=== PATIENT | male | born 1955 | race Caucasian/White ===

== ENCOUNTER 2016-11-07 10:10 | Emergency (ER) | payer MEDICARE, BC ==
[~2016-11-07] VITALS: Ht 167.6 cm; Wt 75.0 kg
[~2016-11-07 10:10] MED LIST: CARV6.252 PO; CHOL1CHW5 CHEW; CYAN1KIT3 IM; CYCL1TAB29 PO; DULO1CAP3 PO; LIAL1.2T PO; LISI10TA3 PO; LOMO2.5T PO; MULT1TAB46; OCUVTAB PO; POTA4.25 PO; TRAM50TA PO; WELC625T2 PO; ZOFR4TAB3 SL
[2016-11-07 10:13] VITALS: BP 138/86; PULSE 85; RESP 16; TEMP 97.9; O2SAT 98
[2016-11-07] MEDS ORDERED: ERYTOIN10 EACH EYE (10:35)
[2016-11-07] MEDS ORDERED: BUDE3CAP PO ×2 (10:35→12:10)
[2016-11-07] MEDS ORDERED: CYAN1000P IM (10:35)
[2016-11-07] MEDS ORDERED: SACU1TAB PO (10:35)
[2016-11-07] MEDS ORDERED: ERGO2000 PO (10:35)
[2016-11-07] MEDS ORDERED: SODIUM CHLORIDE 0.9% FLUSH 10 ML FLUSH IV FLUSH PRN (10:45)
[2016-11-07 11:12] LABS: AUTOMATED NEUTROPHIL # 2.4 TH/MM3 (1.8-7.7); BASOPHIL % 0.7 % (0.0-2.0); EOSINOPHIL # 0.1 TH/MM3 (0-0.4); EOSINOPHIL % 1.8 % (0.0-4.0); LYMPH % 15.8 % (9.0-44.0); LYMPHOCYTE # 0.7 TH/MM3 (1.0-4.8); MEAN CELL VOLUME 94.1 FL (80.0-100.0); MEAN CORPUSCULAR HEMOGLOBIN 30.6 PG (27.0-34.0); MEAN CORPUSCULAR HGB CONC 32.5 % (32.0-36.0); NEUT % 59.7 % (16.0-70.0); PLATELET COUNT 305 TH/MM3 (150-450); RED BLOOD COUNT 3.82 MIL/MM3 (4.50-5.90); RED CELL DISTRIBUTION WIDTH 12.9 % (11.6-17.2); WHITE BLOOD COUNT 4.1 TH/MM3 (4.0-11.0)
[2016-11-07 11:17] LABS: HEMO FLAGS AUTO DIFF
[2016-11-07 11:21] LABS: POTASSIUM 3.4 MEQ/L (3.5-5.1)
[2016-11-07 11:24] LABS: BICARBONATE 27.6 MEQ/L (21.0-32.0)
[2016-11-07 11:45] LABS: EOSINOPHILS 1 % (0-4); NEUTROPHIL # MANUAL DIFF 2.8 TH/MM3 (1.8-7.7); POLYS (SEG NEUTROPHILS) 69 % (16-70); SCAN/DIFF FINAL DIFF MANUAL; WBC DIFF SAMPLE 100
[2016-11-07 11:47] VITALS: O2SAT 98
--- NOTE | 2016-11-07 11:51 | PD ---
HPI Chief Complaint: Abdominal Pain Time Seen by Provider: 10:25 Travel History International Travel<30 days: No Contact w/Intl Traveler<30days: No Traveled to known affect area: No History of Present Illness HPI 61-year-old male arrives to the ER complaining of labile blood pressure for about 2 weeks or so. The lowest blood pressure was 91/52 and the highest was 160/105. He reports feeling diaphoretic at times chills at times. Nausea and bloating comes and goes. His appetite has been decreased. He reports compliance with budesonide for the past 2 years however was discontinued over a three-week taper. Symptoms have progressively worsened. He describes typically feeling fine and then describing a sudden onset of weakness and fatigue. The describes pallor with diaphoresis during these episodes which may for example occur while the patient is walking in a supermarket or while in a restaurant. Antihypertensives include carvedilol. The patient also takes tramadol and Flexeril. PFSH Past Medical History Hx Anticoagulant Therapy: No Cancer: Yes (leukemia-last chemo 2015) Cardiovascular Problems: Yes (STATES LOW EJECTION FRACTION) Chemotherapy: Yes (07/01) Diabetes: No Hypertension: Yes Social History Alcohol Use: No Tobacco Use: No Allergies-Medications (Allergen,Severity, Reaction): Coded Allergies: No Known Allergies (Unverified , 11/07/16) Reported Meds & Prescriptions Reported Meds & Active Scripts Active Budesonide DR (Budesonide) 3 Mg Capdr 3 Mg PO DAILY 10 Days Zofran Odt (Ondansetron Odt) 4 Mg Tab 4 Mg SL Q6HR PRN Reported Entresto (Sacubitril-Valsartan) 24-26 Mg Tab Tab PO DAILY Vitamin D2 (Ergocalciferol) 2,000 Unit Tab 2,000 Units PO DAILY Erythromycin Opth Oint 5 Mg/Gm Oint 1 Applic EACH EYE DAILY Cyanocobalamin Inj (Cyanocobalamin) 1,000 Mcg/Ml Inj 1,000 Mcg IM Q30D Ocuvite (Multiple Vitamins W/ Minerals) 1 Tab 1 Tab PO DAILY Welchol (Colesevelam HCl) 625 Mg Tab 1,250 Mg PO BID Lomotil (Diphenoxylate-Atropine) 2.5-0.025 Mg Tab 1 Tab PO Q6H PRN Flexeril (Cyclobenzaprine HCl) 10 Mg Tab 10 Mg PO TID PRN Tramadol (Tramadol HCl) 50 Mg Tab 50 Mg PO Q6H PRN Carvedilol 6.25 Mg Tab 12.5 Mg PO BID Lialda (Mesalamine) 1.2 Gm Tabdr 1,600 Mg PO DAILY Take with a meal. Duloxetine DR (Duloxetine HCl) 60 Mg Capdr 60 Mg PO DAILY Potassium Citrate ER 15 Meq Tab 10 Meq PO TID Multi Vitamin Daily (Multiple Vitamin) 1 Tab Tab Review of Systems Except as stated in HPI: all other systems reviewed are Neg General / Constitutional: No: Fever Physical Exam Narrative GENERAL: 61-year-old male well-nourished developed pleasant SKIN: Focused skin assessment warm/dry. HEAD: Atraumatic. Normocephalic. EYES: Pupils equal and round. No scleral icterus. No injection or drainage. ENT: No nasal bleeding or discharge. Mucous membranes pink and moist. NECK: Trachea midline. No JVD. CARDIOVASCULAR: Regular rate and rhythm. No murmur appreciated. RESPIRATORY: No accessory muscle use. Clear to auscultation. Breath sounds equal bilaterally. GASTROINTESTINAL: Abdomen soft, non-tender, nondistended. Hepatic and splenic margins not palpable. MUSCULOSKELETAL: No obvious deformities. No clubbing. No cyanosis. No edema. NEUROLOGICAL: Awake and alert. No obvious cranial nerve deficits. Motor grossly within normal limits. Normal speech. PSYCHIATRIC: Appropriate mood and affect; insight and judgment normal. Data Data Last Documented VS Vital Signs Date Time Temp Pulse Resp B/P Pulse Ox O2 Delivery O2 Flow Rate FiO2 11/07/16 12:30 78 18 154/78 98 11/07/16 11:47 Room Air 11/07/16 10:13 97.9 Vital signs reviewed Orders Basic Metabolic Panel (Bmp) (11/07/16 10:38) Complete Blood Count With Diff (11/07/16 10:38) Iv Access Insert/Monitor (11/07/16 10:38) Ecg Monitoring (11/07/16 10:38) Oximetry (11/07/16 10:38) Sodium Chloride 0.9% Flush (Ns Flush) (11/07/16 10:45) Labs Laboratory Tests Test 11/07/16 11:05 White Blood Count 4.1 TH/MM3 Red Blood Count 3.82 MIL/MM3 Hemoglobin 11.7 GM/DL Hematocrit 36.0 % Mean Corpuscular Volume 94.1 FL Mean Corpuscular Hemoglobin 30.6 PG Mean Corpuscular Hemoglobin 32.5 % Concent Red Cell Distribution Width 12.9 % Platelet Count 305 TH/MM3 Mean Platelet Volume 7.2 FL Neutrophils (%) (Auto) 59.7 % Lymphocytes (%) (Auto) 15.8 % Monocytes (%) (Auto) 22.0 % Eosinophils (%) (Auto) 1.8 % Basophils (%) (Auto) 0.7 % Neutrophils # (Auto) 2.4 TH/MM3 Lymphocytes # (Auto) 0.7 TH/MM3 Monocytes # (Auto) 0.9 TH/MM3 Eosinophils # (Auto) 0.1 TH/MM3 Basophils # (Auto) 0.0 TH/MM3 CBC Comment AUTO DIFF Differential Total Cells 100 Counted Neutrophils % (Manual) 69 % Lymphocytes % 22 % Monocytes % 8 % Eosinophils % 1 % Neutrophils # (Manual) 2.8 TH/MM3 Differential Comment FINAL DIFF MANUAL Sodium Level 146 MEQ/L Potassium Level 3.4 MEQ/L Chloride Level 110 MEQ/L Carbon Dioxide Level 27.6 MEQ/L Anion Gap 8 MEQ/L Blood Urea Nitrogen 9 MG/DL Creatinine 0.86 MG/DL Estimat Glomerular Filtration 91 ML/MIN Rate Random Glucose 92 MG/DL Calcium Level 9.1 MG/DL [facility] Medical Decision Making Medical Screen Exam Complete: Yes Emergency Medical Condition: Yes Differential Diagnosis NSTEMI, unstable angina, coronary vasospasm, PE, PTX, aortic dissection, pericarditis, myocarditis, endocarditis, PNA, esophageal disease, aneurysm, musculoskeletal etiologies, anxiety, cocaine/sympathomimetic abuse Narrative Course CBC & BMP Diagram 11/07/16 11:05 The presentation could be consistent with steroid withdrawal symptoms. He has no petechia. His belly is soft. No evidence of significant electrolyte abnormality and vital signs are normal here. At this point we can initiate budesonide 3 mg daily for one week with a plan for interval evaluation by Dr Samuel, who has been tapering his steroid regimen. Diagnosis Primary Impression: Labile blood pressure Additional Impressions: Pallor Diaphoresis Bloating Referrals: Gordo Almonte MD 2 days Additional Instructions: You have a choice when it comes to health care, and we are glad that you chose [facility]. Hopefully, we have met your expectations on today's visit. You are welcome to return to [facility] at any time, as we are committed to meeting the health care needs of our community. Med/Other Pt SpecificInfo: Prescription(s) given Scripts Budesonide DR 3 Mg Capdr3 Mg PO DAILY 10 Days Ref 0 Prov:Erick Suarez MD 11/07/16 Disposition: 01 DISCHARGE HOME Condition: Stable Erick Suarez MD Nov 07, 2016 11:51
[2016-11-07 12:30] VITALS: BP 154/78
== END 2016-11-07 12:33 | disposition home or self-care (01) ==
LOC: PHED 10:10
DX: R09.89 Other specified symptoms and signs involving the circulatory and respiratory systems (principal); R23.1 Pallor; R61 Generalized hyperhidrosis; R14.0 Abdominal distension (gaseous); I10 Essential (primary) hypertension; Z85.6 Personal history of leukemia
CPT/HCPCS: 80048; 85007; 85027; 99283

== ENCOUNTER 2016-12-07 10:55 | Inpatient (IN) | payer BC ==
[2016-12-07] VITALS (12 sets, daily range): BP systolic 87–151; BP diastolic 44–81; PULSE 84–106; RESP 16–18; TEMP 98.6–102.2; O2SAT 92–98
[~2016-12-07] VITALS: Ht 167.6 cm; Wt 77.9 kg
[~2016-12-07 10:55] MED LIST changes: +BUDE3CAP PO; -CHOL1CHW5 CHEW; +CYAN1000P IM; -CYAN1KIT3 IM; +ERGO2000 PO; +ERYTOIN10 EACH EYE; -LISI10TA3 PO; +SACU1TAB PO
[2016-12-07] MEDS ORDERED: SODIUM CHLOR 0.9% 1000 ML INJ 1,000 ML IV ONE ×2 (11:45→13:00)
[2016-12-07] MEDS ORDERED: ACETAMINOPHEN 325 MG TAB PO ONE (11:45)
[2016-12-07] MEDS ORDERED: SODIUM CHLORIDE 0.9% FLUSH 10 ML FLUSH IVF PRN (11:45)
[2016-12-07 12:06] LABS: AUTOMATED NEUTROPHIL # 6.5 TH/MM3 (1.8-7.7); BASOPHIL # 0.2 TH/MM3 (0-0.2); BASOPHIL % 1.9 % (0.0-2.0); EOSINOPHIL % 0.2 % (0.0-4.0); HEMATOCRIT 31.9 % (39.0-51.0); HEMO FLAGS DIFF FINAL; LYMPH % 6.9 % (9.0-44.0); LYMPHOCYTE # 0.6 TH/MM3 (1.0-4.8); MEAN CELL VOLUME 91.6 FL (80.0-100.0); MEAN CORPUSCULAR HEMOGLOBIN 30.8 PG (27.0-34.0); MEAN CORPUSCULAR HGB CONC 33.6 % (32.0-36.0); MONO % 11.7 % (0.0-8.0); NEUT % 79.3 % (16.0-70.0); PLATELET COUNT 242 TH/MM3 (150-450); RED BLOOD COUNT 3.49 MIL/MM3 (4.50-5.90); RED CELL DISTRIBUTION WIDTH 12.9 % (11.6-17.2); WHITE BLOOD COUNT 8.3 TH/MM3 (4.0-11.0)
[2016-12-07 12:15] LABS: CHLORIDE 110 MEQ/L (98-107); POTASSIUM 3.4 MEQ/L (3.5-5.1); SODIUM (NA) 144 MEQ/L (136-145)
[2016-12-07 12:19] LABS: ANION GAP 7 MEQ/L (5-15); BICARBONATE 26.9 MEQ/L (21.0-32.0); BLOOD UREA NITROGEN 12 MG/DL (7-18)
[2016-12-07 12:22] LABS: ALT (GPT) 29 U/L (12-78); AST (GOT) 21 U/L (15-37); GLOMERULAR FILTRATION RATE 62 ML/MIN (>89)
[2016-12-07 12:23] LABS: TOTAL BILIRUBIN ADULT 1.2 MG/DL (0.2-1.0)
[2016-12-07 12:25] LABS: ALKALINE PHOSPHATASE 84 U/L (45-117)
[2016-12-07] MEDS ORDERED: cefTRIAXone INJ 1,000 MG in SODIUM CHLORIDE 0.9% INJ 100 ML IV ONE (13:00)
[2016-12-07] MEDS ORDERED: AZITHROMYCIN INJ 500 MG in SODIUM CHLOR 0.9% 250 ML INJ 250 ML IV ONE (13:00)
--- NOTE | 2016-12-07 13:17 | RADRPT ---
EXAM DATE/TIME: 12/07/2016 12:02 [place] COMPARISON: No previous studies available for comparison. INDICATIONS : Cough, short of breath, and dizziness for 3 days. MEDICAL HISTORY : Leukemia. Low ejection fraction. SURGICAL HISTORY : None. ENCOUNTER: Initial ACUITY: 3 days PAIN SCORE: 0/10 LOCATION: Bilateral chest FINDINGS: PA and lateral views of the chest demonstrate the lungs to be symmetrically aerated without evidence of mass, infiltrate or effusion. The cardiomediastinal contours are unremarkable. Osseous structure s are intact. CONCLUSION: No acute cardiopulmonary process to explain current clinical symptoms. Wilbert Robles MD on December 07, 2016 at 13:15 Board Certified Radiologist. This report was verified electronically.
--- NOTE | 2016-12-07 13:41 | PD ---
HPI Chief Complaint: Respiratory Symptoms Time Seen by Provider: 11:29 Travel History International Travel<30 days: No Contact w/Intl Traveler<30days: No Traveled to known affect area: No History of Present Illness HPI Patient is a 61-year-old male with history of Crohn's disease, and leukemia in remission, who comes in complaining of fever with cough and sore throat. He says this has been going on for the past few days. He has been taking Advil cold and sinus without relief. He denies any pain other than in his throat. He had a bone marrow biopsy a few weeks ago, which she reports is normal. He denies any chest pain or shortness of breath. He is not having any abdominal pain, nausea or vomiting. He reports a fever of 102 last night. PFSH Past Medical History Hx Anticoagulant Therapy: No Cancer: Yes (leukemia-last chemo 2015) Cardiovascular Problems: Yes (STATES LOW EJECTION FRACTION) Chemotherapy: Yes (07/01) Diabetes: No Hypertension: Yes Influenza Vaccination: Yes Past Surgical History Other Surgery: Yes (2 bowel resection) Social History Alcohol Use: No Tobacco Use: No Substance Use: No Allergies-Medications (Allergen,Severity, Reaction): Coded Allergies: No Known Allergies (Unverified , 12/07/16) Reported Meds & Prescriptions Reported Meds & Active Scripts Active Reported Entresto (Sacubitril-Valsartan) 24-26 Mg Tab Tab PO DAILY Vitamin D2 (Ergocalciferol) 2,000 Unit Tab 2,000 Units PO DAILY Erythromycin Opth Oint 5 Mg/Gm Oint 1 Applic EACH EYE DAILY Cyanocobalamin Inj (Cyanocobalamin) 1,000 Mcg/Ml Inj 1,000 Mcg IM Q30D Ocuvite (Multiple Vitamins W/ Minerals) 1 Tab 1 Tab PO DAILY Welchol (Colesevelam HCl) 625 Mg Tab 1,250 Mg PO BID Flexeril (Cyclobenzaprine HCl) 10 Mg Tab 10 Mg PO TID PRN Tramadol (Tramadol HCl) 50 Mg Tab 50 Mg PO Q6H PRN Carvedilol 6.25 Mg Tab 12.5 Mg PO BID Lialda (Mesalamine) 1.2 Gm Tabdr 1,600 Mg PO DAILY Take with a meal. Duloxetine DR (Duloxetine HCl) 60 Mg Capdr 60 Mg PO DAILY Potassium Citrate ER 15 Meq Tab 10 Meq PO TID Multi Vitamin Daily (Multiple Vitamin) 1 Tab Tab Review of Systems Except as stated in HPI: all other systems reviewed are Neg General / Constitutional: Positive: Fever Eyes: No: Blurred Vision HENT: Positive: Sore Throat Cardiovascular: No: Chest Pain or Discomfort Respiratory: Positive: Cough Gastrointestinal: No: Nausea, Vomiting, Abdominal Pain Genitourinary: No: Dysuria Musculoskeletal: No: Pain Skin: No Rash, No Change in Pigmentation Neurologic: No: Weakness, Dizziness Physical Exam Narrative GENERAL: Awake and alert, in no acute distress. SKIN: Focused skin assessment warm/dry. HEAD: Atraumatic. Normocephalic. EYES: Pupils equal and round. No scleral icterus. ENT: Mucous membranes pink and moist. Mild tonsillar swelling as well as erythema of the pharynx. Uvula is midline. NECK: Trachea midline. No JVD. CARDIOVASCULAR: Regular rate and rhythm. No murmur appreciated. RESPIRATORY: No accessory muscle use. Crackles on the left base. Breath sounds equal bilaterally. GASTROINTESTINAL: Abdomen soft, non-tender, nondistended. MUSCULOSKELETAL: No obvious deformities. No clubbing. No cyanosis. No edema. NEUROLOGICAL: Awake and alert. No obvious cranial nerve deficits. Motor grossly within normal limits. Normal speech. PSYCHIATRIC: Appropriate mood and affect; insight and judgment normal. Data Data Last Documented VS Vital Signs Date Time Temp Pulse Resp B/P Pulse Ox O2 Delivery O2 Flow Rate FiO2 12/07/16 13:28 86 16 95/52 94 Room Air 12/07/16 10:58 100.1 Orders Complete Blood Count With Diff (12/07/16 11:34) Comprehensive Metabolic Panel (12/07/16 11:34) Iv Access Insert/Monitor (12/07/16 11:34) Ecg Monitoring (12/07/16 11:34) Oximetry (12/07/16 11:34) Oxygen Administration (12/07/16 11:34) Chest, Pa & Lat (12/07/16 11:34) Sodium Chloride 0.9% Flush (Ns Flush) (12/07/16 11:45) Lactic Acid (12/07/16 11:34) Sodium Chlor 0.9% 1000 Ml Inj (Ns 1000 M (12/07/16 11:45) Acetaminophen (Tylenol) (12/07/16 11:45) Group A Rapid Strep Screen (12/07/16 11:34) Strep Culture (Group A) (12/07/16 11:45) Sodium Chlor 0.9% 1000 Ml Inj (Ns 1000 M (12/07/16 13:00) Ceftriaxone Inj (Rocephin Inj) (12/07/16 13:00) Azithromycin Inj (Zithromax Inj) (12/07/16 13:00) Blood Culture (12/07/16 13:23) Influenzae A/B Antigen (12/07/16 13:38) Admit Order (Ed Use Only) (12/07/16 ) Labs Laboratory Tests Test 12/07/16 11:55 White Blood Count 8.3 TH/MM3 Red Blood Count 3.49 MIL/MM3 Hemoglobin 10.7 GM/DL Hematocrit 31.9 % Mean Corpuscular Volume 91.6 FL Mean Corpuscular Hemoglobin 30.8 PG Mean Corpuscular Hemoglobin 33.6 % Concent Red Cell Distribution Width 12.9 % Platelet Count 242 TH/MM3 Mean Platelet Volume 7.4 FL Neutrophils (%) (Auto) 79.3 % Lymphocytes (%) (Auto) 6.9 % Monocytes (%) (Auto) 11.7 % Eosinophils (%) (Auto) 0.2 % Basophils (%) (Auto) 1.9 % Neutrophils # (Auto) 6.5 TH/MM3 Lymphocytes # (Auto) 0.6 TH/MM3 Monocytes # (Auto) 1.0 TH/MM3 Eosinophils # (Auto) 0.0 TH/MM3 Basophils # (Auto) 0.2 TH/MM3 CBC Comment DIFF FINAL Differential Comment Sodium Level 144 MEQ/L Potassium Level 3.4 MEQ/L Chloride Level 110 MEQ/L Carbon Dioxide Level 26.9 MEQ/L Anion Gap 7 MEQ/L Blood Urea Nitrogen 12 MG/DL Creatinine 1.20 MG/DL Estimat Glomerular Filtration 62 ML/MIN Rate Random Glucose 100 MG/DL Lactic Acid Level 1.0 mmol/L Calcium Level 8.9 MG/DL Total Bilirubin 1.2 MG/DL Aspartate Amino Transf 21 U/L (AST/SGOT) Alanine Aminotransferase 29 U/L (ALT/SGPT) Alkaline Phosphatase 84 U/L Total Protein 6.6 GM/DL Albumin 3.3 GM/DL MDM Medical Decision Making Medical Screen Exam Complete: Yes Emergency Medical Condition: Yes Medical Record Reviewed: Yes Differential Diagnosis Sepsis versus pneumonia versus bacteremia Narrative Course Patient is a 61-year-old male who comes in complaining of fever with cough and sore throat. Exam shows some mild erythema of the pharynx as well as crackles in the left lung. IV status, labs sent. Labs show no acute abnormalities. Chest x-ray shows no evidence of pneumonia currently. Patient was treated empirically with Rocephin and azithromycin. Given IV fluids. Patient is hypotensive and febrile, suggesting sepsis. He'll be admitted for further management. Diagnosis Primary Impression: Sepsis Qualified Code: A41.9 - Sepsis, due to unspecified organism Admitting Information Admitting Physician Requests: Admit Fany Buck MD Dec 07, 2016 13:41
[2016-12-07] MEDS ORDERED: ONDANSETRON HCL 4 MG/2 ML VIAL IV PUSH ONE (13:45)
[2016-12-07] MEDS ORDERED: LACTULOSE SYRUP 20 GM/30 ML CUP PO PRN (14:30)
[2016-12-07] MEDS ORDERED: NALOXONE HCL 0.4 MG/ML AMP IV PRN (14:30)
[2016-12-07] MEDS ORDERED: BISACODYL 10 MG SUPP RECTAL PRN (14:30)
[2016-12-07] MEDS ORDERED: SODIUM CHLORIDE 0.9% FLUSH 10 ML FLUSH IV FLUSH PRN (14:30)
[2016-12-07] MEDS ORDERED: SENNOSIDES 8.6 MG TAB PO PRN (14:30)
[2016-12-07] MEDS ORDERED: MAGNESIUM HYDROXIDE SUSP 30 ML CUP PO PRN (14:30)
[2016-12-07] MEDS: cefTRIAXone INJ 1,000 MG in SODIUM CHLORIDE 0.9% INJ 100 ML IV SCH (14:44)
[2016-12-07] MEDS ORDERED: SODIUM CHLOR 0.9% 1000 ML INJ 1,000 ML IV SCH (15:00)
[2016-12-07] MEDS ORDERED: ONDANSETRON HCL 4 MG/2 ML VIAL IVP PRN (15:00)
[2016-12-07] MEDS: ENOXAPARIN SODIUM 30 MG/0.3 ML SYRINGE SQ SCH (15:05)
[2016-12-07] MEDS ORDERED: traMADol HCL 50 MG TAB PO PRN (17:15)
[2016-12-07] MEDS ORDERED: predniSONE 5 MG TAB PO ONE (17:15)
[2016-12-07] MEDS ORDERED: CYCLOBENZAPRINE HCL 10 MG TAB PO PRN (17:15)
[2016-12-07] MEDS ORDERED: POTASSIUM CHLORIDE 10 MEQ CONTROLLED RELEASE TAB PO ONE (18:30)
--- NOTE | 2016-12-07 18:40 | HHI.HP ---
[facility] Abdi Serrato MD Admission Diagnosis Sepsis Diagnoses: Travel History International Travel<30 Days: No Contact w/Intl Traveler <30 Da: No Traveled to Known Affected Are: No History of Present Illness 61-year-old male with a history of Crohn's disease, previously on budesonide for years, leukemia which is in remission, congestive heart failure, who presents with a 2 day history of fevers measured up to 102, chills, sore throat , cough productive of brown sputum. He shouldn't presents to the ER due to lightheadedness with standing, presyncope for the past 2 days. Patient denies any recent changes in medications, with the exception of discontinuation of budesonide one month ago. Patient denies any chest pain or shortness of breath. Denies any headache, vision changes. No diarrhea or constipation. Denies any burning with urination. Review of Systems performed and negative except for history of present illness and past medical history. Past Family Social History Past Medical History Crohn's disease Leukemia in remission Hypertension Congestive heart failure. Most recent echocardiogram reportedly with ejection fraction 40% B12 deficiency Chronic pain Past Surgical History History of bowel resection 2. Reported Medications Reported Meds & Active Scripts Active Reported Entresto (Sacubitril-Valsartan) 24-26 Mg Tab Tab PO DAILY Vitamin D2 (Ergocalciferol) 2,000 Unit Tab 2,000 Units PO DAILY Erythromycin Opth Oint 5 Mg/Gm Oint 1 Applic EACH EYE DAILY Cyanocobalamin Inj (Cyanocobalamin) 1,000 Mcg/Ml Inj 1,000 Mcg IM Q30D Ocuvite (Multiple Vitamins W/ Minerals) 1 Tab 1 Tab PO DAILY Welchol (Colesevelam HCl) 625 Mg Tab 1,250 Mg PO BID Flexeril (Cyclobenzaprine HCl) 10 Mg Tab 10 Mg PO TID PRN Tramadol (Tramadol HCl) 50 Mg Tab 50 Mg PO Q6H PRN Carvedilol 6.25 Mg Tab 12.5 Mg PO BID Lialda (Mesalamine) 1.2 Gm Tabdr 1,600 Mg PO DAILY Take with a meal. Duloxetine DR (Duloxetine HCl) 60 Mg Capdr 60 Mg PO DAILY Potassium Citrate ER 15 Meq Tab 10 Meq PO TID Multi Vitamin Daily (Multiple Vitamin) 1 Tab Tab Allergies: Coded Allergies: No Known Allergies (Unverified , 12/07/16) Family History Sr. with ovarian cancer. Brother with brain aneurysm. Mother passed way from carbon monoxide poisoning. Father with lung cancer Social History Nonsmoker. Nondrinker. Denies illicit drugs. Physical Exam Vital Signs Vital Signs Date Time Temp Pulse Resp B/P Pulse Ox O2 Delivery O2 Flow Rate FiO2 12/07/16 17:29 98.6 88 16 112/60 96 Nasal Cannula 2 12/07/16 16:43 88 16 103/44 97 Nasal Cannula 2 12/07/16 15:29 96 Nasal Cannula 2 12/07/16 15:29 84 16 95/55 96 Nasal Cannula 2 12/07/16 15:29 16 96 Nasal Cannula 2 12/07/16 15:10 90 Nasal Cannula 2 12/07/16 14:35 90 16 93/56 94 Room Air 12/07/16 13:28 86 16 95/52 94 Room Air 12/07/16 12:29 90 16 87/51 96 Room Air 12/07/16 12:24 98 Room Air 12/07/16 12:24 16 98 Room Air 12/07/16 10:58 100.1 96 16 96/54 98 Physical Exam GENERAL: This is a well-nourished, well-developed patient, in no apparent distress.aaox3 SKIN: No rashes, ecchymoses or lesions. Cool and dry. HEAD: Atraumatic. Normocephalic. No temporal or scalp tenderness. EYES: Pupils equal round and reactive. Extraocular motions intact. No scleral icterus. No injection or drainage. ENT: Nose without bleeding, purulent drainage or septal hematoma. Throat without erythema, tonsillar hypertrophy or exudate. Uvula midline. Airway patent. NECK: Trachea midline. No JVD or lymphadenopathy. Supple, nontender, no meningeal signs. CARDIOVASCULAR: Regular rate and rhythm without murmurs, gallops, or rubs. RESPIRATORY: Clear to auscultation. Breath sounds equal bilaterally. No wheezes , rales, or rhonchi. GASTROINTESTINAL: Abdomen soft, non-tender, nondistended. No hepato-splenomegaly , or palpable masses. No guarding. MUSCULOSKELETAL: Extremities without clubbing, cyanosis, or edema. No joint tenderness, effusion, or edema noted. No calf tenderness. Negative Homans sign bilaterally. NEUROLOGICAL: Awake and alert. Cranial nerves II through XII intact. Motor and sensory grossly within normal limits. Five out of 5 muscle strength in all muscle groups. Normal speech. Laboratory Laboratory Tests Test 12/07/16 11:55 White Blood Count 8.3 Red Blood Count 3.49 Hemoglobin 10.7 Hematocrit 31.9 Mean Corpuscular Volume 91.6 Mean Corpuscular Hemoglobin 30.8 Mean Corpuscular Hemoglobin 33.6 Concent Red Cell Distribution Width 12.9 Platelet Count 242 Mean Platelet Volume 7.4 Neutrophils (%) (Auto) 79.3 Lymphocytes (%) (Auto) 6.9 Monocytes (%) (Auto) 11.7 Eosinophils (%) (Auto) 0.2 Basophils (%) (Auto) 1.9 Neutrophils # (Auto) 6.5 Lymphocytes # (Auto) 0.6 Monocytes # (Auto) 1.0 Eosinophils # (Auto) 0.0 Basophils # (Auto) 0.2 CBC Comment DIFF FINAL Differential Comment Sodium Level 144 Potassium Level 3.4 Chloride Level 110 Carbon Dioxide Level 26.9 Anion Gap 7 Blood Urea Nitrogen 12 Creatinine 1.20 Estimat Glomerular Filtration 62 Rate Random Glucose 100 Lactic Acid Level 1.0 Calcium Level 8.9 Total Bilirubin 1.2 Aspartate Amino Transf 21 (AST/SGOT) Alanine Aminotransferase 29 (ALT/SGPT) Alkaline Phosphatase 84 Total Protein 6.6 Albumin 3.3 Date/Time Procedure Status Source Growth 12/07/16 13:55 Aerobic Blood Culture Received Blood Peripheral Pending 12/07/16 13:55 Anaerobic Blood Culture Received Blood Peripheral Pending 12/07/16 13:45 Influenza Types A,B Antigen (ZEINAB) - Final Complete Nasal Washing NEGATIVE FOR FLU A AND B ANTIGEN.... 12/07/16 11:45 Group A Streptococcus Screen (ZEINAB) - Final Complete Throat 12/07/16 11:45 Group A Streptococcus Screen Received Throat Pending Result Diagram: 12/07/16 1155 12/07/16 1155 Imaging Last Impressions Chest X-Ray 12/07/16 1134 Signed Impressions: Service Date/Time: Wednesday, December 07, 2016 12:02 - CONCLUSION: No acute cardiopulmonary process to explain current clinical symptoms. Wilbert Robles MD Assessment and Plan Assessment and Plan //Upper respiratory infection. -Chest x-ray with no acute findings. Urine negative for strep antigen. No sinus tenderness. -Continue antibiotics. //Possible sepsis -Fever of 102 at home. 100.1 on presentaiton. Tachycardia heart rate 96 on admission. Hypotension with systolic blood pressures in the 80s. -Upper respiratory infection. -Continue antibiotics. Cultures ordered in ER. Follow-up. //Hypotension. /Tachycardia //possible adrenal insufficincy -Recently as continued budesonide. This has a high first pass metabolism, however depending on how patient metabolite sepsis, could have resulted in adrenal insufficiency. -We'll start on prednisone 5 mg daily -Hold off on Entresto at this time. Restart as necessary. //Hypokalemia.. replace. //History of CHF -Patient appears euvolemic. Continue beta sharif. -Hold Entresto due to relative hypotension. At back as necessary. Continue to monitor. //Crohn's disease. Continue home medications. //Depression. Chronic. No SI or HI. Continue home medications. //B12 deficiency. Restart as outpatient. //Vitamin D deficiency. Continue. //Prophylaxis. Lovenox. - Code Status Full code. Discussed Condition With Patient, nurse, ED physician. Physician Certification 2 Midnight Certification Type: Admission for Inpatient Services Order for Inpatient Services The services are ordered in accordance with Medicare regulations or non- Medicare payer requirements, as applicable. In the case of services not specified as inpatient-only, they are appropriately provided as inpatient services in accordance with the 2-midnight benchmark. Estimated LOS (days): 2 days is the estimated time the patient will need to remain in the hospital, assuming treatment plan goals are met and no additional complications. Post-Hospital Plan: Not yet determined Vimal Parker MD Dec 07, 2016 18:40
[2016-12-07] MEDS ORDERED: FUROSEMIDE 40 MG/4 ML VIAL IV ONE (20:15)
[2016-12-07] MEDS ORDERED: ACETAMINOPHEN 325 MG TAB PO PRN (20:45)
[2016-12-07] MEDS: SODIUM CHLORIDE 0.9% FLUSH 10 ML FLUSH IV FLUSH SCH (21:38)
[2016-12-07] MEDS: COLESEVELAM HCL 625 MG TAB PO SCH (21:39)
[2016-12-07] MEDS: CARVEDILOL 12.5 MG TAB PO SCH (21:39)
[2016-12-08] VITALS (7 sets, daily range): BP systolic 108–142; BP diastolic 60–96; PULSE 88–98; RESP 16–18; TEMP 98.2–100.9; O2SAT 94–98
[2016-12-08 06:21] LABS: AUTOMATED NEUTROPHIL # 5.2 TH/MM3 (1.8-7.7); BASOPHIL % 0.2 % (0.0-2.0); EOSINOPHIL % 0.4 % (0.0-4.0); HEMATOCRIT 29.4 % (39.0-51.0); LYMPH % 8.2 % (9.0-44.0); LYMPHOCYTE # 0.5 TH/MM3 (1.0-4.8); MEAN CELL VOLUME 92.5 FL (80.0-100.0); MEAN CORPUSCULAR HEMOGLOBIN 29.9 PG (27.0-34.0); MEAN CORPUSCULAR HGB CONC 32.4 % (32.0-36.0); MONO % 9.7 % (0.0-8.0); NEUT % 81.5 % (16.0-70.0); PLATELET COUNT 223 TH/MM3 (150-450); RED BLOOD COUNT 3.18 MIL/MM3 (4.50-5.90); RED CELL DISTRIBUTION WIDTH 12.9 % (11.6-17.2); WHITE BLOOD COUNT 6.3 TH/MM3 (4.0-11.0)
[2016-12-08 06:28] LABS: HEMO FLAGS DIFF FINAL
[2016-12-08 06:29] LABS: CHLORIDE 110 MEQ/L (98-107); POTASSIUM 3.4 MEQ/L (3.5-5.1); SODIUM (NA) 144 MEQ/L (136-145)
[2016-12-08 06:35] LABS: ANION GAP 8 MEQ/L (5-15); BICARBONATE 25.9 MEQ/L (21.0-32.0); BLOOD UREA NITROGEN 11 MG/DL (7-18)
[2016-12-08 06:38] LABS: ALT (GPT) 23 U/L (12-78); AST (GOT) 15 U/L (15-37); GLOMERULAR FILTRATION RATE 84 ML/MIN (>89)
[2016-12-08 06:39] LABS: TOTAL BILIRUBIN ADULT 0.8 MG/DL (0.2-1.0)
[2016-12-08 06:41] LABS: ALKALINE PHOSPHATASE 71 U/L (45-117)
[2016-12-08] MEDS: AZITHROMYCIN 250 MG TAB PO SCH (09:17)
[2016-12-08] MEDS: MESALAMINE HD 800 MG DELAYED RELEASE TAB PO SCH (09:20)
[2016-12-08] MEDS: SODIUM CHLORIDE 0.9% FLUSH 10 ML FLUSH IV FLUSH SCH ×2 (09:21→21:24)
[2016-12-08] MEDS: DULoxetine HCl DR 60 MG CAP PO SCH (09:22)
[2016-12-08] MEDS: CHOLECALCIFEROL (VIT D3) 1000 UNIT TAB PO SCH (09:22)
[2016-12-08] MEDS: predniSONE 5 MG TAB PO SCH (09:23)
[2016-12-08] MEDS: CARVEDILOL 12.5 MG TAB PO SCH ×2 (09:23→21:24)
[2016-12-08] MEDS ORDERED: POTASSIUM CHLORIDE 10 MEQ CONTROLLED RELEASE TAB PO ONE (09:45)
[2016-12-08] MEDS: COLESEVELAM HCL 625 MG TAB PO SCH ×2 (10:39→21:23)
[2016-12-08] MEDS: cefTRIAXone INJ 1,000 MG in SODIUM CHLORIDE 0.9% INJ 100 ML IV SCH (15:01)
[2016-12-08] MEDS: ENOXAPARIN SODIUM 30 MG/0.3 ML SYRINGE SQ SCH (15:01)
--- NOTE | 2016-12-08 18:21 | HHI.PR ---
Subjective Remarks Patient seen this morning around 10 AM. Says he is feeling a little better than yesterday. Still lightheaded with standing. Fever noted of 102.2 overnight. Denies any chest pain. Still with productive cough. Objective Vital Signs Date Time Temp Pulse Resp B/P Pulse Ox O2 Delivery O2 Flow Rate FiO2 12/08/16 16:00 99.0 89 18 132/96 95 12/08/16 14:10 16 12/08/16 13:00 100.0 12/08/16 12:00 100.9 91 18 120/65 98 12/08/16 08:00 99.7 92 18 120/71 96 12/08/16 02:04 100.1 95 18 142/79 95 12/08/16 00:00 100.4 98 16 108/60 94 12/07/16 21:20 100.5 105 18 151/81 92 12/07/16 20:45 102.2 106 18 133/66 93 Nasal Cannula 2 12/07/16 19:25 100.5 12/07/16 19:05 98 18 126/65 93 Nasal Cannula 2 12/07/16 19:00 98 18 I/O 12/07/16 12/07/16 12/07/16 12/08/16 12/08/16 12/08/16 06:59 14:59 22:59 06:59 14:59 22:59 Intake Total 2250 ml 790 ml 180 ml 1325 ml Output Total 1280 ml Balance 2250 ml -490 ml 180 ml 1325 ml Intake Oral 240 ml 180 ml 1325 ml IV Total 2250 ml 550 ml Output Urine Total 1280 ml # Voids 1 1 2 # Bowel Movements 0 0 Result Diagram: 12/08/16 0605 12/08/16 06 A/P Assessment and Plan === 12/08/16==== //Continues with sepsis. Fever, tachycardia, congestion. Repeat chest x-ray. //Suspected adrenal insufficiency. Blood pressure improved with prednisone. Continue. Continue to hold off entrust him at this time. //hypokalemia. Potassium 3.4. Mild. Replace. //Upper respiratory infection. -Chest x-ray with no acute findings. Urine negative for strep antigen. No sinus tenderness. -Continue antibiotics. //Possible sepsis -Fever of 102 at home. 100.1 on presentaiton. Tachycardia heart rate 96 on admission. Hypotension with systolic blood pressures in the 80s. -Upper respiratory infection. -Continue antibiotics. Cultures ordered in ER. Follow-up. //Hypotension. /Tachycardia //possible adrenal insufficincy -Recently as continued budesonide. This has a high first pass metabolism, however depending on how patient metabolite sepsis, could have resulted in adrenal insufficiency. -We'll start on prednisone 5 mg daily -Hold off on Entresto at this time. Restart as necessary. //Hypokalemia.. replace. //History of CHF -Patient appears euvolemic. Continue beta sharif. -Continue to Hold Entresto due to relative hypotension. At back as necessary. Continue to monitor. //Crohn's disease. Continue home medications. //Depression. Chronic. No SI or HI. Continue home medications. //B12 deficiency. Restart as outpatient. //Vitamin D deficiency. Continue. //Prophylaxis. Lovenox. Discharge Planning possible discharge tomorrow if vitals improved. Vimal Parker MD Dec 08, 2016 18:21
--- NOTE | 2016-12-08 18:49 | RADRPT ---
EXAM DATE/TIME: 12/08/2016 18:35 [place] COMPARISON: CHEST PA & LAT, December 07, 2016, 12:02. INDICATIONS : Cough, short of breath, chest congestion MEDICAL HISTORY : Leukemia. Low ejection fraction. SURGICAL HISTORY : None. ENCOUNTER: Subsequent ACUITY: 4 - 6 days PAIN SCORE: 0/10 LOCATION: Bilateral chest FINDINGS: PA and lateral views of the chest demonstrate bibasilar patchy opacities. Heart mildly enlarged. The cardiomediastinal contours are unremarkable. Osseous structures are intact. CONCLUSION: Bibasilar patchy infiltrates. Michael Rodriguez MD on December 08, 2016 at 18:46 Board Certified Radiologist. This report was verified electronically.
--- NOTE | 2016-12-08 21:09 | EKG ---
Date Performed: 12/07/2016 Time Performed: 18:11:24 PTAGE: 61 years EKG: Sinus rhythm MINIMAL VOLTAGE CRITERIA FOR LVH, CONSIDER NORMAL VARIANT NONSPECIFIC T-WAVE ABNORMALITY BORDERLINE ECG PREVIOUS TRACING : 04/21/2016 13.34 Compared to prior tracing no significant change DOCTOR: Paty Pope Interpretating Date/Time 12/08/2016 21:08:01
[2016-12-09] VITALS: BP 127/73; PULSE 81; RESP 16; TEMP 99.6; O2SAT 94
[2016-12-09 06:22] LABS: AUTOMATED NEUTROPHIL # 3.8 TH/MM3 (1.8-7.7); BASOPHIL % 0.2 % (0.0-2.0); EOSINOPHIL # 0.1 TH/MM3 (0-0.4); EOSINOPHIL % 1.8 % (0.0-4.0); HEMO FLAGS DIFF FINAL; LYMPH % 8.4 % (9.0-44.0); LYMPHOCYTE # 0.4 TH/MM3 (1.0-4.8); MEAN CELL VOLUME 92.6 FL (80.0-100.0); MEAN CORPUSCULAR HEMOGLOBIN 30.3 PG (27.0-34.0); MEAN CORPUSCULAR HGB CONC 32.7 % (32.0-36.0); MONO % 10.9 % (0.0-8.0); NEUT % 78.7 % (16.0-70.0); PLATELET COUNT 230 TH/MM3 (150-450); RED BLOOD COUNT 3.25 MIL/MM3 (4.50-5.90); RED CELL DISTRIBUTION WIDTH 12.4 % (11.6-17.2); WHITE BLOOD COUNT 4.9 TH/MM3 (4.0-11.0)
[2016-12-09 06:34] LABS: POTASSIUM 3.8 MEQ/L (3.5-5.1)
[2016-12-09 06:40] LABS: BICARBONATE 28.8 MEQ/L (21.0-32.0); MAGNESIUM 1.9 MG/DL (1.5-2.5)
[2016-12-09 10:06] VITALS: BP 138/81; PULSE 85; RESP 15; TEMP 99.1; O2SAT 96
[2016-12-09] MEDS: CARVEDILOL 12.5 MG TAB PO SCH (10:11)
[2016-12-09] MEDS: MESALAMINE HD 800 MG DELAYED RELEASE TAB PO SCH (10:11)
[2016-12-09] MEDS: CHOLECALCIFEROL (VIT D3) 1000 UNIT TAB PO SCH (10:12)
[2016-12-09] MEDS: predniSONE 5 MG TAB PO SCH (10:12)
[2016-12-09] MEDS: DULoxetine HCl DR 60 MG CAP PO SCH (10:13)
[2016-12-09] MEDS: AZITHROMYCIN 250 MG TAB PO SCH (10:13)
[2016-12-09] MEDS: SODIUM CHLORIDE 0.9% FLUSH 10 ML FLUSH IV FLUSH SCH (10:14)
--- NOTE | 2016-12-09 10:59 | HHI.PR ---
Subjective Remarks Patient seen in follow-up for treatment insufficiency and sepsis due to community acquired pneumonia. No further fevers since yesterday afternoon. Blood pressures improved. Care plan discussed with patient and with spouse. Chest x-ray reviewed with patient. Patient complaining of head congestion. Otherwise feels better. Care plan discussed with physical therapy Objective Vitals Vital Signs Date Time Temp Pulse Resp B/P Pulse Ox O2 Delivery O2 Flow Rate FiO2 12/09/16 10:06 99.1 85 15 138/81 96 12/09/16 00:00 99.6 81 16 127/73 94 12/08/16 20:00 98.2 88 18 136/75 96 12/08/16 16:00 99.0 89 18 132/96 95 12/08/16 14:10 16 12/08/16 13:00 100.0 12/08/16 12:00 100.9 91 18 120/65 98 I/O 12/08/16 12/08/16 12/08/16 12/09/16 12/09/16 12/09/16 07:00 15:00 23:00 07:00 15:00 23:00 Intake Total 180 ml 1325 ml 400 ml 420 ml Balance 180 ml 1325 ml 400 ml 420 ml Intake Oral 180 ml 1325 ml 400 ml 420 ml # Voids 1 2 0 2 # Bowel Movements 0 0 0 0 Result Diagram: 12/09/16 0530 12/09/16 0530 Imaging Last Impressions Chest X-Ray 12/08/16 0000 Signed Impressions: Service Date/Time: Thursday, December 08, 2016 18:35 - CONCLUSION: Bibasilar patchy infiltrates. Michael Rodriguez MD Objective Remarks GENERAL: This is a well-nourished, well-developed patient, in no apparent distress. CARDIOVASCULAR: Regular rate and rhythm without murmurs, gallops, or rubs. RESPIRATORY: Clear to auscultation. Breath sounds equal bilaterally. No wheezes , rales, or rhonchi. GASTROINTESTINAL: Abdomen soft, non-tender, nondistended. Normal active bowel sounds MUSCULOSKELETAL: Extremities without clubbing, cyanosis, or edema. NEURO: Alert & Oriented x4 to person, place, time, situation. Moves all ext x4 A/P Problem List: (1) Sepsis ICD Code: A41.9 Status: Acute Plan: Patient with fever, tachycardia and hypotension. Improved with steroids and with IV antibiotics for presumed community-acquired pneumonia We'll change IV Rocephin to oral Ceftin 10 and continue oral azithromycin Walk test for hypoxemia pending (2) Adrenal insufficiency ICD Code: E27.40 Status: Acute Plan: Improved exacerbation of relative adrenal insufficiency Continue with steroids, adjust medications for hypotension (3) Inflammatory bowel disease (Crohn's disease) ICD Code: K50.90 Status: Acute Plan: Patient with stable Crohn's at this time, continue with Asacol (4) CHF (congestive heart failure) ICD Code: I50.9 Status: Acute Plan: Without exacerbation of systolic heart failure (EF of 40% per patient) We'll resume entresto Assessment and Plan lmwh 40 sq daily Discharge Planning Likely discharge in a.m. on oral medicines Problem Qualifiers (1) Sepsis: Qualified Code: A41.9 - Sepsis, due to unspecified organism Radha Montoya MD Dec 09, 2016 10:59
[2016-12-09] MEDS: COLESEVELAM HCL 625 MG TAB PO SCH (11:50)
[2016-12-09] MEDS ORDERED: CEFUROXIME AXETIL 500 MG TAB PO SCH (12:00)
[2016-12-09] MEDS ORDERED: SACUBITRIL/VALSARTAN 24 MG-26 MG TAB PO SCH (12:00)
[2016-12-09 13:57] VITALS: BP 117/64; PULSE 82; RESP 16; TEMP 99; O2SAT 95
[2016-12-09] MEDS ORDERED: ENOXAPARIN SODIUM 40 MG/0.4 ML SYRINGE SQ SCH (15:00)
[2016-12-09] MEDS ORDERED: CEFU1TAB20 PO (16:29)
[2016-12-09] MEDS ORDERED: AZIT500T2 PO (16:29)
[2016-12-09] MEDS ORDERED: guaiFENesin E.R. 600 MG TAB PO ONE (16:30)
--- NOTE | 2016-12-09 16:30 | HHI.DCPOC ---
Discharge Care Plan Diagnosis: (1) Sepsis (2) Adrenal insufficiency Goals to Promote Your Health * To prevent worsening of your condition and complications * To maintain your health at the optimal level Directions to Meet Your Goals Take your medications as prescribed Follow your dietary instruction Follow activity as directed Keep your appointments as scheduled Take your immunizations and boosters as scheduled If your symptoms worsen call your PCP, if no PCP go to Urgent Care Center or Emergency Room Smoking is Dangerous to Your Health. Avoid second hand smoke Call the 24-hour hour crisis hotline for domestic abuse at Radha Montoya MD Dec 09, 2016 16:30
[2016-12-09] MEDS ORDERED: MUCI30TA2 PO (16:31)
[2016-12-09] MEDS ORDERED: PRED5TAB PO (16:33)
--- NOTE | 2016-12-09 16:34 | HHI.DS ---
Discharge Summary Admission Date Dec 07, 2016 at 13:39 Discharge Date: Dec 09, 2016 Admitting Diagnosis Sepsis (1) Sepsis ICD Code: A41.9 (2) Adrenal insufficiency ICD Code: E27.40 (3) Inflammatory bowel disease (Crohn's disease) ICD Code: K50.90 (4) CHF (congestive heart failure) ICD Code: I50.9 Procedures none Brief History - From Admission 61-year-old male with a history of Crohn's disease, previously on budesonide for years, leukemia which is in remission, congestive heart failure, who presents with a 2 day history of fevers measured up to 102, chills, sore throat , cough productive of brown sputum. He shouldn't presents to the ER due to lightheadedness with standing, presyncope for the past 2 days. Patient denies any recent changes in medications, with the exception of discontinuation of budesonide one month ago. Patient denies any chest pain or shortness of breath. Denies any headache, vision changes. No diarrhea or constipation. Denies any burning with urination. CBC/BMP: 12/09/16 0530 12/09/16 0530 Significant Findings Laboratory Tests Test 12/07/16 12/08/16 12/09/16 11:55 06:05 05:30 Red Blood Count 3.49 MIL/MM3 3.18 MIL/MM3 3.25 MIL/MM3 (4.50-5.90) (4.50-5.90) (4.50-5.90) Hemoglobin 10.7 GM/DL 9.5 GM/DL 9.8 GM/DL (13.0-17.0) (13.0-17.0) (13.0-17.0) Hematocrit 31.9 % 29.4 % 30.0 % (39.0-51.0) (39.0-51.0) (39.0-51.0) Neutrophils (%) (Auto) 79.3 % 81.5 % 78.7 % (16.0-70.0) (16.0-70.0) (16.0-70.0) Lymphocytes (%) (Auto) 6.9 % 8.2 % 8.4 % (9.0-44.0) (9.0-44.0) (9.0-44.0) Monocytes (%) (Auto) 11.7 % 9.7 % (0.0-8.0) 10.9 % (0.0-8.0) (0.0-8.0) Lymphocytes # (Auto) 0.6 TH/MM3 0.5 TH/MM3 0.4 TH/MM3 (1.0-4.8) (1.0-4.8) (1.0-4.8) Monocytes # (Auto) 1.0 TH/MM3 (0-0.9) Potassium Level 3.4 MEQ/L 3.4 MEQ/L (3.5-5.1) (3.5-5.1) Chloride Level 110 MEQ/L 110 MEQ/L 110 MEQ/L (98-107) (98-107) (98-107) Estimat Glomerular Filtration 62 ML/MIN (>89) 84 ML/MIN (>89) Rate Total Bilirubin 1.2 MG/DL (0.2-1.0) Albumin 3.3 GM/DL 2.8 GM/DL 2.7 GM/DL (3.4-5.0) (3.4-5.0) (3.4-5.0) Mean Platelet Volume 6.7 FL (7.0-11.0) Calcium Level 8.2 MG/DL (8.5-10.1) Total Protein 5.9 GM/DL (6.4-8.2) Sodium Level 146 MEQ/L (136-145) Phosphorus Level 2.4 MG/DL (2.5-4.9) PE at Discharge GENERAL: This is a well-nourished, well-developed patient, in no apparent distress. CARDIOVASCULAR: Regular rate and rhythm without murmurs, gallops, or rubs. RESPIRATORY: Clear to auscultation. Breath sounds equal bilaterally. No wheezes , rales, or rhonchi. GASTROINTESTINAL: Abdomen soft, non-tender, nondistended. Normal active bowel sounds MUSCULOSKELETAL: Extremities without clubbing, cyanosis, or edema. NEURO: Alert & Oriented x4 to person, place, time, situation. Moves all ext x4 Pt update on day of discharge Please see daily progress note Reevaluation patient shows improved oxygenation without need for oxygen, patient blood pressure is stable and no fever 24 hours Hospital Course This patient is a 61-year-old gentleman with a history of altered bowel disease. Patient did developed sepsis from pneumonia and was given IV antibiotics. He had some relative adrenal insufficiency which improved with steroids and patient was discharged home to follow-up with his primary care physician Pt Condition on Discharge: Good Discharge Disposition: Discharge Home Discharge Time: > 30 minutes Discharge Instructions DIET: Follow Instructions for: Heart Healthy Diet Activities you can perform: Regular-No Restrictions Follow up Referrals: PCP Follow-up - 1 Week New Medications: Azithromycin (Azithromycin) 500 Mg Tab 500 MG PO DAILY Infection #5 Ref 0 TAB Dextromethorphan-Guaifenesin (Mucinex DM) 30-600 Mg Tab 1 TAB PO BID PRN CHEST CONGESTION AND/OR COUGH #30 Ref 0 TAB Cefuroxime (Cefuroxime) 500 Mg Tab 500 MG PO Q12HR Infection #10 TAB Prednisone (Prednisone) 5 Mg Tab 5 MG PO DAILY insufficiency #10 TAB Continued Medications: Carvedilol (Carvedilol) 6.25 Mg Tab 12.5 MG PO BID #60 Ref 0 TAB Colesevelam (Welchol) 625 Mg Tab 1250 MG PO BID Hyperlipidemia,type 2 diabetes #180 Ref 0 TAB Cyanocobalamin Inj (Cyanocobalamin Inj) 1,000 Mcg/Ml Inj 1000 MCG IM Q30D #1 Ref 0 VIAL Cyclobenzaprine (Flexeril) 10 Mg Tab 10 MG PO TID PRN PAIN SCALE 5 TO 10 #90 Ref [address] (Dul[address]etine DR) 60 Mg Capdr 60 MG PO DAILY #30 Ref 0 CAP Ergocalciferol (Vitamin D2) 2,000 Unit Tab 2000 UNITS PO DAILY Nutritional Supplement Ref 0 TAB Erythromycin Opth Oint (Erythromycin Opth Oint) 5 Mg/Gm Oint 1 APPLIC EACH EYE DAILY Infection #1 Ref [address] (Lialda) 1.2 Gm Tabdr 1600 MG PO DAILY Take with a meal. Ulcerative Colitis Ref 0 TAB Multiple Vitamin (Multi Vitamin Daily) 1 Tab Tab Multiple Vitamins W/ Minerals (Ocuvite) 1 Tab 1 TAB PO DAILY Nutritional Supplement Ref 0 TAB Potassium Citrate ER (Potassium Citrate ER) 15 Meq Tab 10 MEQ PO TID Sacubitril-Valsartan (Entresto) 24-26 Mg Tab TAB PO DAILY Heart Failure #30 Ref 0 TAB Tramadol (Tramadol) 50 Mg Tab 50 MG PO Q6H PRN PAIN Ref 0 TAB Radha Montoya MD Dec 09, 2016 16:34
== END 2016-12-09 18:06 | disposition home or self-care (01) | DRG 871 ==
LOC: PHED 10:55 → PHEDA 13:39 → PHEDH 17:39 → PH3A 21:00
PROVIDERS: ADMIT Hospitalist; ATTEND Hospitalist
DX: A41.9 Sepsis, unspecified organism (principal); J18.9 Pneumonia, unspecified organism; I50.22 Chronic systolic (congestive) heart failure; E27.40 Unspecified adrenocortical insufficiency; K50.90 Crohn's disease, unspecified, without complications; C95.91 Leukemia, unspecified, in remission; Z92.21 Personal history of antineoplastic chemotherapy; E87.6 Hypokalemia; E53.8 Deficiency of other specified B group vitamins; E55.9 Vitamin D deficiency, unspecified
CPT/HCPCS: 71020; 80053; 80069; 83605; 83735; 85025; 87040; 87081; 87804; 87880; 93005; 94620; 96361; 96374; J0456; J0696; J1650; J1940; J2405; J7030; J7050; J7512

== ENCOUNTER 2017-01-11 11:45 | Emergency (ER) | payer BC ==
[~2017-01-11] VITALS: Ht 167.6 cm; Wt 75.5 kg
[~2017-01-11 11:45] MED LIST changes: +AZIT500T2 PO; -BUDE3CAP PO; +CEFU1TAB20 PO; -LOMO2.5T PO; +MUCI30TA2 PO; +PRED5TAB PO; -ZOFR4TAB3 SL
[2017-01-11 11:56] VITALS: BP 116/62; PULSE 87; RESP 16; TEMP 97.6; O2SAT 97
[2017-01-11 12:00] VITALS: BP_SYST 116; BP_SYST 83; BP_SYST 98; BP_DIAS 54; BP_DIAS 60; BP_DIAS 62; RESP 16; O2SAT 98
--- NOTE | 2017-01-11 12:11 | PD ---
HPI Chief Complaint: Syncope/Near-Syncope Time Seen by Provider: 12:02 Travel History International Travel<30 days: No Contact w/Intl Traveler<30days: No Traveled to known affect area: No History of Present Illness HPI The patient is a 61-year-old male who presents to the emergency department via EMS from his oncologist office for near syncope. The patient has a history of AML that is currently in remission for approximately 1.5 years. The patient was being evaluated by his oncologist, Dr. Vogel, when he had a near syncopal episode. The patient states he was walking to the bathroom when he became lightheaded and felt like he is going to pass out. The patient does complain of lightheadedness and dizziness which is worse with sitting upright and standing. The patient does have a history of similar symptoms in the past. He denies any acute nausea, vomiting, but does note a history of chronic diarrhea secondary to Crohn's disease. He denies any history of poor oral intake. He does have a history of congestive heart failure and states his ejection fraction was 30%, however, it has improved over 40% and he did not need subsequent AICD placement. He denied any chest pain, shortness of breath, or palpitations prior to the near syncopal episode. The patient is followed by his [employer] security, Dr. Couch, and his primary physician, Dr. Serrato. [facility] Past Medical History Hx Anticoagulant Therapy: No Cancer: Yes (leukemia-last chemo 2015) Cardiovascular Problems: Yes (STATES LOW EJECTION FRACTION 40%) Chemotherapy: Yes (2/) Diabetes: No Hypertension: Yes Past Surgical History Other Surgery: Yes (2 bowel resection) Social History Alcohol Use: No Tobacco Use: No Substance Use: No Allergies-Medications (Allergen,Severity, Reaction): Coded Allergies: No Known Allergies (Unverified , 01/11/17) Reported Meds & Prescriptions Reported Meds & Active Scripts Active Prednisone 5 Mg Tab 5 Mg PO DAILY Reported Entresto (Sacubitril-Valsartan) 24-26 Mg Tab Tab PO DAILY Vitamin D2 (Ergocalciferol) 2,000 Unit Tab 2,000 Units PO DAILY Cyanocobalamin Inj (Cyanocobalamin) 1,000 Mcg/Ml Inj 1,000 Mcg IM Q30D Ocuvite (Multiple Vitamins W/ Minerals) 1 Tab 1 Tab PO DAILY Welchol (Colesevelam HCl) 625 Mg Tab 1,250 Mg PO BID Flexeril (Cyclobenzaprine HCl) 10 Mg Tab 10 Mg PO TID PRN Tramadol (Tramadol HCl) 50 Mg Tab 50 Mg PO Q6H PRN Carvedilol 6.25 Mg Tab 12.5 Mg PO BID Lialda (Mesalamine) 1.2 Gm Tabdr 1,600 Mg PO DAILY Take with a meal. Duloxetine DR (Duloxetine HCl) 60 Mg Capdr 60 Mg PO DAILY Potassium Citrate ER 15 Meq Tab 10 Meq PO TID Multi Vitamin Daily (Multiple Vitamin) 1 Tab Tab Review of Systems Except as stated in HPI: all other systems reviewed are Neg General / Constitutional: No: Fever HENT: Positive: Lightheadedness Cardiovascular: Positive: Syncope, No: Chest Pain or Discomfort Respiratory: No: Shortness of Breath Gastrointestinal: No: Nausea, Vomiting, Abdominal Pain Musculoskeletal: No: Weakness, Edema Neurologic: Positive: Dizziness, Syncope Physical Exam Narrative GENERAL: Awake, alert, nontoxic-appearing 61-year-old male who appears his stated age and is in no acute respiratory distress. SKIN: Focused skin assessment warm/dry. HEAD: Atraumatic. Normocephalic. EYES: Pupils equal and round. No scleral icterus. No injection or drainage. ENT: No nasal bleeding or discharge. Slightly dry mucous membranes. NECK: Trachea midline. No JVD. CARDIOVASCULAR: Regular rate and rhythm. No murmur appreciated. Heart rate in the 70s. RESPIRATORY: No accessory muscle use. Clear to auscultation. Breath sounds equal bilaterally. GASTROINTESTINAL: Abdomen soft, non-tender, nondistended. No rebound tenderness. MUSCULOSKELETAL: No obvious deformities. No clubbing. No cyanosis. No edema. NEUROLOGICAL: Awake and alert. No obvious cranial nerve deficits. Motor grossly within normal limits. Normal speech. PSYCHIATRIC: Appropriate mood and affect; insight and judgment normal. Data Data Last Documented VS Vital Signs Date Time Temp Pulse Resp B/P (MAP) Pulse Ox O2 Delivery O2 Flow Rate FiO2 01/11/17 13:21 77 18 111/63 (79) 98 Room Air 01/11/17 11:56 97.6 Orders Orders Electrocardiogram (01/11/17 12:02) Complete Blood Count With Diff (01/11/17 12:02) Comprehensive Metabolic Panel (01/11/17 12:02) Magnesium (Mg) (01/11/17 12:02) Ecg Monitoring (01/11/17 12:02) Iv Access Insert/Monitor (01/11/17 12:02) Oximetry (01/11/17 12:02) Sodium Chloride 0.9% Flush (Ns Flush) (01/11/17 12:15) Orthostatic Vital Signs (01/11/17 12:02) Potassium Chloride (Kcl) (01/11/17 12:45) Sodium Chlorid 0.9% 500 Ml Inj (Ns 500 M (01/11/17 13:00) Labs Laboratory Tests Test 01/11/17 12:13 White Blood Count 9.2 TH/MM3 Red Blood Count 3.69 MIL/MM3 Hemoglobin 11.3 GM/DL Hematocrit 34.2 % Mean Corpuscular Volume 92.6 FL Mean Corpuscular Hemoglobin 30.6 PG Mean Corpuscular Hemoglobin Concent 33.1 % Red Cell Distribution Width 14.9 % Platelet Count 289 TH/MM3 Mean Platelet Volume 6.8 FL Neutrophils (%) (Auto) 80.0 % Lymphocytes (%) (Auto) 10.4 % Monocytes (%) (Auto) 8.0 % Eosinophils (%) (Auto) 1.4 % Basophils (%) (Auto) 0.2 % Neutrophils # (Auto) 7.4 TH/MM3 Lymphocytes # (Auto) 1.0 TH/MM3 Monocytes # (Auto) 0.7 TH/MM3 Eosinophils # (Auto) 0.1 TH/MM3 Basophils # (Auto) 0.0 TH/MM3 CBC Comment DIFF FINAL Differential Comment Blood Urea Nitrogen 21 MG/DL Creatinine 0.91 MG/DL Random Glucose 96 MG/DL Total Protein 5.9 GM/DL Albumin 3.1 GM/DL Calcium Level 8.2 MG/DL Magnesium Level 2.1 MG/DL Alkaline Phosphatase 91 U/L Aspartate Amino Transf (AST/SGOT) 17 U/L Alanine Aminotransferase (ALT/SGPT) 45 U/L Total Bilirubin 0.5 MG/DL Sodium Level 143 MEQ/L Potassium Level 3.0 MEQ/L Chloride Level 108 MEQ/L Carbon Dioxide Level 27.9 MEQ/L Anion Gap 7 MEQ/L Estimat Glomerular Filtration Rate 85 ML/MIN MDM Medical Decision Making Medical Screen Exam Complete: Yes Emergency Medical Condition: Yes Medical Record Reviewed: Yes Interpretation(s) EKG reveals normal sinus rhythm with a rate of 78. Left ventricular hypertrophy noted on EKG. Nonspecific ST changes. Laboratory Tests Test 01/11/17 12:13 White Blood Count 9.2 TH/MM3 Red Blood Count 3.69 MIL/MM3 Hemoglobin 11.3 GM/DL Hematocrit 34.2 % Mean Corpuscular Volume 92.6 FL Mean Corpuscular Hemoglobin 30.6 PG Mean Corpuscular Hemoglobin Concent 33.1 % Red Cell Distribution Width 14.9 % Platelet Count 289 TH/MM3 Mean Platelet Volume 6.8 FL Neutrophils (%) (Auto) 80.0 % Lymphocytes (%) (Auto) 10.4 % Monocytes (%) (Auto) 8.0 % Eosinophils (%) (Auto) 1.4 % Basophils (%) (Auto) 0.2 % Neutrophils # (Auto) 7.4 TH/MM3 Lymphocytes # (Auto) 1.0 TH/MM3 Monocytes # (Auto) 0.7 TH/MM3 Eosinophils # (Auto) 0.1 TH/MM3 Basophils # (Auto) 0.0 TH/MM3 CBC Comment DIFF FINAL Differential Comment Blood Urea Nitrogen 21 MG/DL Creatinine 0.91 MG/DL Random Glucose 96 MG/DL Total Protein 5.9 GM/DL Albumin 3.1 GM/DL Calcium Level 8.2 MG/DL Magnesium Level 2.1 MG/DL Alkaline Phosphatase 91 U/L Aspartate Amino Transf (AST/SGOT) 17 U/L Alanine Aminotransferase (ALT/SGPT) 45 U/L Total Bilirubin 0.5 MG/DL Sodium Level 143 MEQ/L Potassium Level 3.0 MEQ/L Chloride Level 108 MEQ/L Carbon Dioxide Level 27.9 MEQ/L Anion Gap 7 MEQ/L Estimat Glomerular Filtration Rate 85 ML/MIN Differential Diagnosis Differential diagnoses includes dehydration, orthostatic hypotension, arrhythmia , electrolyte abnormality, pulmonary embolism, neurogenic syncope, vasovagal episode, adrenal insufficiency. Narrative Course IV was established, labs are drawn and sent, and the patient was placed on cardiac telemetry monitoring and continuous pulse oximetry monitoring. EMS started IV fluids with 1 L, this was administered over one hour. Initial orthostatic vital signs upon arrival were positive, patient symptoms appear to be related to orthostatic changes. As the patient does have an EF of 40%, only 1 L of IV fluids were administered and then repeat orthostatic vital signs were obtained. EKG was ordered and interpreted. Electrolytes were sent to lab. The patient's potassium is low at 3.0, was replaced orally. The patient's hemoglobin is minimally low at 11.3. The patient was reevaluated at 2:15 PM, orthostatics were read checked, were normal. The patient states his symptoms had significantly improved. Discussion regarding 23 hour observation versus discharge home, the patient would prefer to be discharged home. He is advised to follow-up with his primary physician and return if symptoms worsen or progress. Diagnosis Primary Impression: Near syncope Additional Impression: Orthostatic hypotension Patient Instructions: General Instructions Additional Instructions: Non-caffeinated/nonalcoholic beverages to stay hydrated. Please provide the patient a copy of his labs at discharge. Follow-up with your primary physician. Return if symptoms worsen or progress. Med/Other Pt SpecificInfo: No Change to Meds Disposition: 01 DISCHARGE HOME Condition: Stable Herson Phan MD Jan 11, 2017 12:11
[2017-01-11] MEDS ORDERED: SODIUM CHLORIDE 0.9% FLUSH 10 ML FLUSH IVF PRN (12:15)
[2017-01-11 12:20] LABS: AUTOMATED NEUTROPHIL # 7.4 TH/MM3 (1.8-7.7); BASOPHIL % 0.2 % (0.0-2.0); EOSINOPHIL # 0.1 TH/MM3 (0-0.4); EOSINOPHIL % 1.4 % (0.0-4.0); HEMATOCRIT 34.2 % (39.0-51.0); LYMPH % 10.4 % (9.0-44.0); MEAN CELL VOLUME 92.6 FL (80.0-100.0); MEAN CORPUSCULAR HEMOGLOBIN 30.6 PG (27.0-34.0); MEAN CORPUSCULAR HGB CONC 33.1 % (32.0-36.0); PLATELET COUNT 289 TH/MM3 (150-450); RED BLOOD COUNT 3.69 MIL/MM3 (4.50-5.90); RED CELL DISTRIBUTION WIDTH 14.9 % (11.6-17.2); WHITE BLOOD COUNT 9.2 TH/MM3 (4.0-11.0)
[2017-01-11 12:22] VITALS: O2SAT 93
[2017-01-11 12:24] LABS: HEMO FLAGS DIFF FINAL
[2017-01-11 12:41] LABS: CHLORIDE 108 MEQ/L (98-107); SODIUM (NA) 143 MEQ/L (136-145)
[2017-01-11 12:44] LABS: ANION GAP 7 MEQ/L (5-15); BICARBONATE 27.9 MEQ/L (21.0-32.0)
[2017-01-11 12:45] VITALS: BP 100/63; PULSE 73; RESP 16; O2SAT 94
[2017-01-11 12:45] LABS: BLOOD UREA NITROGEN 21 MG/DL (7-18); MAGNESIUM 2.1 MG/DL (1.5-2.5)
[2017-01-11] MEDS ORDERED: POTASSIUM CHLORIDE 20 MEQ CONTROLLED RELEASE TAB PO ONE (12:45)
[2017-01-11 12:47] LABS: ALT (GPT) 45 U/L (12-78)
[2017-01-11 12:48] LABS: AST (GOT) 17 U/L (15-37); GLOMERULAR FILTRATION RATE 85 ML/MIN (>89)
[2017-01-11 12:49] LABS: TOTAL BILIRUBIN ADULT 0.5 MG/DL (0.2-1.0)
[2017-01-11 12:50] LABS: ALKALINE PHOSPHATASE 91 U/L (45-117)
[2017-01-11] MEDS ORDERED: SODIUM CHLORID 0.9% 500 ML INJ 500 ML IV ONE (13:00)
[2017-01-11 13:21] VITALS: BP 111/63; PULSE 77; RESP 18; O2SAT 98
[2017-01-11 14:17] VITALS: BP_SYST 117; BP_SYST 125; BP_SYST 129; BP_DIAS 62; BP_DIAS 68; BP_DIAS 71; RESP 16; RESP 18
--- NOTE | 2017-01-12 17:09 | EKG ---
Date Performed: 01/11/2017 Time Performed: 12:02:03 PTAGE: 61 years EKG: Sinus rhythm LEFT VENTRICULAR HYPERTROPHY AND ST-T CHANGE Since previous tracing, no significant change noted ABN ORMAL ECG PREVIOUS TRACING : 12/07/2016 18.11 DOCTOR: Francine Brown Interpretating Date/Time 01/12/2017 17:04:13
== END 2017-01-11 14:39 | disposition home or self-care (01) ==
LOC: PHED 11:45
DX: R55 Syncope and collapse (principal); I95.1 Orthostatic hypotension; Z85.6 Personal history of leukemia; I10 Essential (primary) hypertension
CPT/HCPCS: 80053; 83735; 85025; 93005; 99284; J7040